=== PATIENT | male | born 1990 | race Caucasian/White ===

== ENCOUNTER 2018-08-23 18:19 | Inpatient (IN) | payer OTHER ==
[~2018-08-23] VITALS: Ht 175.3 cm; Wt 102.1 kg
[~2018-08-23 18:19] MED LIST: FLEXERIL PO; IBUPROFEN 800800 M1 PO; ZOFRAN ODT4 MG PO
[2018-08-23 18:32] VITALS: BP 140/82
[2018-08-23 19:06] LABS: HEMATOCRIT 40.3 % (42.0-52.0); HEMOGLOBIN 13.7 gm/dL (14.0-18.0); MCH 30.2 pg (26.0-34.0); MCHC 34.1 g/dL (28.0-37.0); MCV 88.4 fL (80.0-100.0); MPV 7.5 fl. (7.2-11.1); NUCLEATED RBCS 0 /100WBC; PLATELET COUNT* 305 thou/uL (150-400); RBC 4.55 mil/uL (4.50-6.00); RDW-CV 13.5 % (10.5-14.5); WBC 11.5 thou/uL (4.0-11.0)
[2018-08-23 19:07] LABS: INFLUENZA B ANTIGEN None Detected (None Detect)
[2018-08-23 19:14] LABS: CALCIUM 8.4 mg/dL (8.5-10.1); CREATININE 1.3 mg/dL (0.6-1.3); POTASSIUM 3.8 mmol/L (3.5-5.1)
[2018-08-23 19:18] LABS: ALBUMIN 3.5 g/dL (3.4-5.0); TOTAL BILIRUBIN 0.2 mg/dL (<0.1-1.0); TOTAL PROTEIN 7.9 g/dL (6.4-8.2)
[2018-08-23 19:41] LABS: ABSOLUTE EOSINOPHILS 0.2 thou/uL (0.0-0.7); ABSOLUTE LYMPHOCYTES 0.7 thou/uL (0.8-5.3); ABSOLUTE NEUTROPHILS 9.5 thou/uL (1.6-8.1)
[2018-08-23 19:42] LABS: PLATELET ESTIMATE ADEQUATE
[2018-08-23 21:15] VITALS: BP 119/71
[2018-08-23 21:37] VITALS: BP 119/71
[2018-08-24] VITALS: BP 129/65
[2018-08-24 04:00] VITALS: BP 135/81
[2018-08-24 09:10] VITALS: BP 131/79
[2018-08-24 11:23] LABS: CALCIUM 8.5 mg/dL (8.5-10.1); MAGNESIUM 2.2 mg/dL (1.8-2.4); POTASSIUM 3.9 mmol/L (3.5-5.1)
[2018-08-24 12:08] VITALS: BP 126/80
[2018-08-24 16:57] VITALS: BP 127/86
[2018-08-24 21:00] VITALS: BP 132/91
[2018-08-25 04:12] VITALS: BP 131/85
[2018-08-25 08:00] VITALS: BP 130/76
[2018-08-25] MEDS ORDERED: KEFLEX500 M1 PO (13:37)
[2018-08-25] MEDS ORDERED: AZITHROMYCIN 2250 MG PO (13:37)
[2018-08-25] MEDS ORDERED: OSELB75 PO (13:41)
[2018-08-25 13:44] VITALS: BP 130/76
[2018-08-25] MEDS ORDERED: IBUPROFEN 200200 M1 PO (14:22)
[2018-08-25] MEDS ORDERED: TYLENOL325 MG PO (14:23)
== END 2018-08-25 16:55 | disposition home or self-care (01) | DRG 871 ==
LOC: M.ERS 18:19 → M.TBA-ER 20:08 → M.3W 20:08
PROVIDERS: Internal Medicine; Nurse Practitioner Psychiatric/Mental Health; ADMIT Internal Medicine
DX: A41.9 Sepsis, unspecified organism (principal); J10.08 Influenza due to other identified influenza virus with other specified pneumonia; J12.89 Other viral pneumonia; N17.0 Acute kidney failure with tubular necrosis; J15.6 Pneumonia due to other Gram-negative bacteria; Z87.891 Personal history of nicotine dependence